=== PATIENT | female | born 1965 | race Caucasian/White ===

== ENCOUNTER → 2019-06-10 | Day surgery (SDC) | payer OTHER ==
[~2019-06-10] MED LIST: ARMOUR THYROID60 MG PO; FENTANYL CITRATE/PF 100MCG/2 ML INJ ONE; GLUCAGON FOR INJ 1 MG VIAL ONE; HYOSCYAMINE 0.125 MG TAB ONE; LIDOCAINE HCL 2% LOCAL INJ 5 ML SDV VIAL INJ ONE; MIDAZOLAM HCL 2 MG/2 ML VIAL ONE; ONDANSETRON HCL INJ 2MG/ML 2ML 2 MG/ML VIAL ONE; PROPOFOL IV EMULSION 10 MG/ML 50 ML VIAL ONE; UNISOM50 MG
--- NOTE | 2019-06-10 19:17 | Operative Report ---
DATE OF PROCEDURE: 06/10/2019 SURGEON: Montrell Verdin MD PROCEDURE: Colonoscopy with polypectomy. INDICATIONS FOR COLONOSCOPY: Colorectal cancer screening. MEDICATIONS: The patient was done under MAC. Please see anesthesiologist's note. PROCEDURE IN DETAIL: With the patient in left lateral decubitus position, a flexible fiberoptic Olympus colonoscope was inserted into the rectum with ease and advanced all the way to the cecum. Some scattered diverticular disease was noted pretty much throughout the colon. Two polyps were removed per snare electrocautery and one polypectomy site was hemoclipped in the descending colon. Approximately 1 cm sessile polyp was removed per snare electrocautery from the sigmoid colon and the site was hemoclipped also. The rectum appeared to be within normal limits. The scope was then retroflexed into the distal rectum. Area around the dentate line appeared to be within normal limits. The scope was then straightened out. It was subsequently withdrawn. The patient tolerated the procedure well. IMPRESSION: 1. Diverticulosis. 2. Descending colon polyps x2, removed per snare electrocautery and one polypectomy site hemoclipped. 3. Sigmoid colon polyp, approximately 1 cm in size, sessile, removed per snare electrocautery and site hemoclipped. 4. Internal hemorrhoids, none actively bleeding. PLAN: Follow up histology. Initiate high-fiber, low-fat diet. Initiate high-fiber supplement. The patient will need a followup colonoscopy in 3 years. Montrell Verdin MD [facility] [place]/RICK /[id number] cc: Osvaldo Thomas DO
== END | disposition home or self-care (01) ==
LOC: OR 12:21 → EDBD 15:30
PROVIDERS: ATTEND Internal Medicine Gastroenterology
DX: Z12.11 Encounter for screening for malignant neoplasm of colon (principal); Z68.27 Body mass index [BMI] 27.0-27.9, adult; E06.3 Autoimmune thyroiditis; G43.909 Migraine, unspecified, not intractable, without status migrainosus; K57.30 Diverticulosis of large intestine without perforation or abscess without bleeding; K64.8 Other hemorrhoids; D12.4 Benign neoplasm of descending colon; D12.5 Benign neoplasm of sigmoid colon; Z01.810 Encounter for preprocedural cardiovascular examination
CPT/HCPCS: 45385; 93005; J1610; J2001; J2250; J2405; J2704; J3010